=== PATIENT | female | born 1955 | race Hispanic/Latino ===

== ENCOUNTER 2017-04-19 12:06 | Emergency (ER) | payer MEDICAID ==
[2017-04-19] MEDS ORDERED: NACL 0.9% 1000 ML 1,000 ML IV ONE (14:14)
[2017-04-19 14:15] LABS: Eosinophils % (Auto) 0.8 % (0.0-4.3); Hematocrit 40.5 % (30.3-42.9); Hemoglobin 13.3 gm/dl (10.1-14.3); Mean Corpuscular HGB Conc 33 % (30-34); Mean Corpuscular Hemoglobin 29 pg (28-32); Mean Corpuscular Volume 88 fl (79-97); Platelet Count 323 K/mm3 (140-440); Red Blood Count 4.58 M/mm3 (3.65-5.03); Red Cell Distribution Width 13.4 % (13.2-15.2); White Blood Count 10.9 K/mm3 (4.5-11.0)
[2017-04-19 14:17] LABS: Alanine Aminotransferase 16 units/L (7-56); Albumin 3.4 g/dL (3.9-5); Albumin/Globulin Ratio 0.8 %; Alkaline Phosphatase 120 units/L (35-129); Anion Gap 18 mmol/L; Blood Urea Nitrogen 10 mg/dL (7-17); Calcium 8.7 mg/dL (8.4-10.2); Carbon Dioxide 21 mmol/L (22-30); Chloride 95.9 mmol/L (98-107); Glucose 356 mg/dL (65-100); Potassium 4.3 mmol/L (3.6-5.0); Sodium 131 mmol/L (137-145); Total Protein 7.6 g/dL (6.3-8.2)
--- NOTE | 2017-04-19 15:07 | Emergency Department Report ---
HPI - General Chief Complaint: Hyperglycemia Time Seen by Provider: 04/19/17 13:10 - HPI HPI: 61-year-old female presents to the emergency department with a complaint of elevated blood sugar and uncontrolled diabetes. Patient admits to some increased urination and thirst. She denies any fever, chest pain, cough, abdominal pain, nausea, vomiting. She checked her blood sugar this morning and found it to be close to 500. This was confirmed when EMS picked her up and it was found to be 583. She is insulin-dependent and says that she is on 40 units of some type of insulin but is a poor historian about her medications. She has a primary care physician but cannot remember their name. 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) - Surgical History Hx Cholecystectomy: Yes Additional Surgical History: Tubaligation - Social History Smoking Status: Heavy Tobacco Smoker Substance Use Type: None - Medications Home Medications: Home Medications Medication Instructions Recorded Confirmed Last Taken Type Docusate Sodium [Colace] 100 mg PO BID PRN #60 capsule 01/03/16 Unknown Rx Gentamicin 0.3% Ophth Soln 1 drops OP Q4H #1 bottle 01/03/16 Unknown Rx Lactulose [Cephulac] 20 gm PO QDAY #90 ml 01/03/16 Unknown Rx ED Review of Systems ROS: Stated complaint: ELEVATED B/P Other details as noted in HPI Comment: All other systems reviewed and negative Constitutional: denies: chills, fever Eyes: denies: eye pain, eye discharge, vision change ENT: denies: ear pain, throat pain Respiratory: denies: cough, shortness of breath, wheezing Cardiovascular: denies: chest pain, palpitations Endocrine: increased thirst, increased urine Gastrointestinal: denies: abdominal pain, nausea, diarrhea Genitourinary: frequency. denies: dysuria, discharge Musculoskeletal: denies: back pain, joint swelling, arthralgia Skin: denies: rash, lesions Neurological: denies: headache, weakness, paresthesias Physical Exam - Physical Exam Vital Signs: Vital Signs 04/19/17 12:35 Temperature 98.5 F Pulse Rate 82 Respiratory 16 Rate Blood Pressure 103/60 Blood Pressure 103/60 [Right] O2 Sat by Pulse 92 Oximetry Physical Exam: GENERAL: The patient is well-developed well-nourished. HEENT: Normocephalic. Atraumatic. Extraocular motions are intact. Patient has moist mucous membranes. Pupils equal reactive to light bilaterally. NECK: Supple. Trachea is midline. CHEST/LUNGS: Clear to auscultation. There is no respiratory distress noted. HEART/CARDIOVASCULAR: Regular. There is no tachycardia. There is no gallop rub or murmur. ABDOMEN: Abdomen is soft, nontender. Patient has normal bowel sounds. There is no abdominal distention. SKIN: Skin is warm and dry. NEURO: The patient is awake, alert. The patient is cooperative. The patient has no focal neurologic deficits. The patient has normal speech. Normal gait. MUSCULOSKELETAL: There is no tenderness or deformity. There is no limitation range of motion. There is no evidence of acute injury. ED Course Vital Signs 04/19/17 12:35 Temperature 98.5 F Pulse Rate 82 Respiratory 16 Rate Blood Pressure 103/60 Blood Pressure 103/60 [Right] O2 Sat by Pulse 92 Oximetry ED Medical Decision Making - Lab Data Result diagrams: 04/19/17 13:43 04/19/17 13:43 - EKG Data -: EKG Interpreted by Tn EKG shows normal: sinus rhythm, axis, intervals, QRS complexes, ST-T waves Rate: normal - EKG Data When compared to previous EKG there are: previous EKG unavailable Interpretation: normal EKG - Medical Decision Making 61-year-old female presents to the emergency department with hyperglycemia. Blood sugar was found to be around 580 by EMS. She did not receive any treatment or medication and her serum blood sugar here was about 380. She was given a liter of IV fluid and 8 units of IV insulin. One hour later the blood sugar was rechecked and her Accu-Chek was closer to 180. Pulse of her labs were unremarkable as there was no electrolyte abnormalities, signs of infection , renal insufficiency. EKG was normal without ST elevation MT, ischemia or dysrhythmia. The patient lives at a assisted secondary to her bipolar disorder and psychiatric disease and it appears as if they manage her medication. Vital signs stable throughout her ED course. The patient appears safe for discharge home at this time. She was seen ambulatory in the emergency department and appeared stable while doing so. There is no venous acidosis, and there is no elevated anion gap. Therefore patient is low suspicion for DKA or HHNK. She'll be encouraged to follow-up with her primary care physician and will return to the ER with any worsening of her symptoms or any acute distress. - Differential Diagnosis DKA, HHNK, hyperglycemia, dysrhythmia Critical Care Time: No Critical care attestation.: If time is entered above; I have spent that time in minutes in the direct care of this critically ill patient, excluding procedure time. ED Disposition Clinical Impression: Hyperglycemia due to type 1 diabetes mellitus Uncontrolled diabetes mellitus Qualifiers: Diabetes mellitus type: type 1 Diabetes mellitus complication status: with hyperglycemia Qualified Code(s): E10.65 - Type 1 diabetes mellitus with hyperglycemia Disposition: DC- TO HOME OR SELFCARE Is pt being admited?: No Condition: Stable Instructions: Diabetic Hyperglycemia (ED) Additional Instructions: Please continue with your normal diabetes insulin regimen. Try to stay away from foods that are high in sugar, carbohydrates and starches to help with your blood sugar. Keep a blood sugar log. Return to the emergency department with any worsening of your symptoms or any acute distress. Referrals: PRIMARY CAREMD [Primary Care Provider] - [facility] Time of Disposition: 15:52
[2017-04-19 15:53] VITALS: BP 105/58
== END 2017-04-19 16:32 | disposition home or self-care (01) ==
LOC: ED 12:06
DX: E10.65 Type 1 diabetes mellitus with hyperglycemia (principal); F31.9 Bipolar disorder, unspecified; F17.200 Nicotine dependence, unspecified, uncomplicated
CPT/HCPCS: 36415; 80053; 82805; 82962; 85025; 93005; 93010; 96361; 96374; 99284; J7030; J1815

== ENCOUNTER 2017-11-15 16:50 | Emergency (ER) | payer MEDICAID ==
[2017-11-15 18:44] LABS: Bacteria,Urine 1+ /HPF (Negative); Bilirubin,Urine NEG (Negative); Blood,Urine NEG (Negative); Color,Urine Yellow (Yellow); Mucus,Urine 3+ /HPF; Nitrite,Urine NEG (Negative)
[2017-11-15 18:47] LABS: Basophils # (Auto) 0.1 K/mm3 (0.0-0.1); Basophils % (Auto) 0.8 % (0.0-1.8); Eosinophils # (Auto) 0.2 K/mm3 (0.0-0.4); Eosinophils % (Auto) 2.1 % (0.0-4.3); Hematocrit 38.4 % (30.3-42.9); Hemoglobin 12.8 gm/dl (10.1-14.3); Lymphocytes % (Auto) 35.8 % (13.4-35.0); Mean Corpuscular HGB Conc 33 % (30-34); Mean Corpuscular Hemoglobin 30 pg (28-32); Mean Corpuscular Volume 91 fl (79-97); Monocytes # (Auto) 0.7 K/mm3 (0.0-0.8); Monocytes % (Auto) 6.5 % (0.0-7.3); Platelet Count 335 K/mm3 (140-440); Red Blood Count 4.23 M/mm3 (3.65-5.03); Red Cell Distribution Width 13.4 % (13.2-15.2)
[2017-11-15 19:01] LABS: Amphetamine Screen,Urine PRESUMPTIVE NEGATIVE; Benzodiazepines Screen,Urine PRESUMPTIVE NEGATIVE; Cannabinoid Screen,Urine PRESUMPTIVE NEGATIVE; Cocaine Screen,Urine PRESUMPTIVE NEGATIVE; Methadone Screen,Urine PRESUMPTIVE NEGATIVE; Opiate Screen,Urine PRESUMPTIVE NEGATIVE
[2017-11-15 19:07] LABS: BUN/Creatinine Ratio 24; Blood Urea Nitrogen 12 mg/dL (7-17); Calcium 8.7 mg/dL (8.4-10.2); Hemolysis Index 1
[2017-11-15] MEDS ORDERED: NACL 0.9% 500 ML 500 ML IV ONE (20:09)
[2017-11-15] MEDS ORDERED: ROCEPHIN/NS 1 GM/50 ML 1 GM/50 ML BAG IV ONE (20:09)
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
[2017-11-15] MEDS ORDERED: cefTRIAXone 1 GM in NACL 0.9% 20 ML IV ONE (21:00)
[2017-11-16] MEDS: MACROBID PO SCH ×2 (11:13→22:25)
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
[2017-11-16] MEDS: RisperDAL PO SCH (22:25)
[2017-11-17] MEDS: MACROBID PO SCH ×2 (12:02→22:22)
--- NOTE | 2017-11-17 15:14 | Progress Note ---
Subjective - Reason for Consult Consult date: 11/17/17 Reason for consult: Psychiatry Follow-up - Chief Complaint Chief complaint: "When will I leave" This is a 61-year-old female who presents to the emergency department by EMS from a psychiatric adult daycare program for her bipolar disorder with a complaint of some visual hallucinations and homicidal ideations. Today the patient is calm and cooperative during the assessment. She wanted to know when she will be transferred. The process was explained to the patient. She stated, "okay." She denies SI/HI's and AVH's. She denies any side effects of her medication. Mental Status Exam - Vital signs Last Vital Signs Temp 98.7 F 11/17/17 10:00 Pulse 72 11/17/17 10:00 Resp 18 11/17/17 10:00 BP 105/68 11/17/17 10:00 Pulse Ox 100 11/17/17 10:00 - Exam Narrative exam: MSE: Appearance: calm, cooperative Behavior: regular eye contact Speech: regular rate and tone Mood: "okay" Affect: congruent to mood Thought Process: circumstantial Thought Content: denies SI/HI's and AVH's Motor Activity: ambulatory Cognition: A/O x3 Insight: variable Judgment: variable Assessment and Plan Impression: Hx of Bipolar DO/Unspecified Intellectual Disability. Today the patient is calm and cooperative during the assessment. Recommendation/Plan: Continue 1013 with placement to inpatient psy services. Continue Risperdal 1 mg PO HS for mood. Discussed possible metabolic side effects of Risperdal with patient.
[2017-11-17] MEDS: RisperDAL PO SCH (22:23)
[2017-11-18] MEDS: MACROBID PO SCH ×2 (10:14→22:33)
--- NOTE | 2017-11-18 18:25 | Progress Note ---
Subjective - Reason for Consult Consult date: 11/18/17 Reason for consult: psychiatric follow-up Requesting physician: FELTON MCCOY - Chief Complaint Chief complaint: "I am fine". 61-year-old female was seen today in the emergency room for a follow- up. Patient has a history of bipolar disorder, and was sent to the ER complains of visual hallucinations or homicidal ideations. Today the patient was seen actively responding to internal stimuli and talking to herself, while she was alone in her room. The staff also did report that the patient was responding to internal stimuli. She was cooperative during the assessment, but at times was speaking in [place] language. She denies any current suicidal or homicidal ideations and also was minimizing or auditory hallucinations. Denies any side effects or current medications. Mental Status Exam - Vital signs Last Vital Signs Temp 98.2 F 11/18/17 07:34 Pulse 95 H 11/18/17 07:34 Resp 16 11/18/17 07:34 BP 140/88 11/18/17 07:34 Pulse Ox 97 11/18/17 07:34 - Exam Orientation: time, place Affect: anxious Mood: anxious Thought content: paranoia Thought Process: Loose Associations, Disorganized Perceptions: auditory, hallucinations Speech: slurring Concentration: distractible Motor activity: normal Level of consciousness: alert Memory: Recent Impaired Appetite: increased Interaction: irritable, guarded Assessment and Plan Assessment and plan: Bipolar disorder with psychosis Recommendation: Continue patient on 1013 and facilitate psychiatric hospital placement. Continue risperidone 1 mg at bedtime for her mood and psychotic symptoms. Will continue to follow-up.
[2017-11-18] MEDS: RisperDAL PO SCH (22:33)
[2017-11-18] MEDS ORDERED: NACL 0.9% 1000 ML 1,000 ML IV ONE (22:48)
[2017-11-19 00:17] LABS: Blood Urea Nitrogen TNR mg/dL (7-17)
[2017-11-19 00:18] LABS: BUN/Creatinine Ratio TNR; Calcium TNR mg/dL (8.4-10.2); Hemolysis Index TNR
[2017-11-19 01:03] LABS: BUN/Creatinine Ratio 26; Blood Urea Nitrogen 13 mg/dL (7-17); Calcium 8.5 mg/dL (8.4-10.2); Hemolysis Index 58
[2017-11-19] MEDS: MACROBID PO SCH ×2 (10:06→22:37)
[2017-11-19] MEDS: RisperDAL PO SCH (22:37)
[2017-11-20] MEDS: MACROBID PO SCH ×2 (10:45→22:27)
--- NOTE | 2017-11-20 11:02 | Progress Note ---
Subjective - Reason for Consult Consult date: 11/20/17 Reason for consult: Psychiatry Follow-up - Chief Complaint Chief complaint: "What do you want" 61-year-old female was seen today in the emergency room for a follow- up. Patient has a history of bipolar disorder, and was sent to the ER complains of visual hallucinations or homicidal ideations. Today the patient is calm during the assessment. She has a tangential thought process and had to be redirected several time to keep her on topic. The patient could possibly be responding to internal stimuli because she was observed talking to herself once I left her room. She denies SI/HI's and any side effects of her medication. Mental Status Exam - Vital signs Last Vital Signs Temp 98 F 11/20/17 05:04 Pulse 70 11/20/17 05:04 Resp 18 11/20/17 05:04 BP 132/74 11/20/17 05:04 Pulse Ox 99 11/20/17 05:04 - Exam Narrative exam: MSE: Appearance: calm Behavior: regular eye contact Speech: regular rate and tone Mood: "okay" Affect: congruent to mood Thought Process: tangential Thought Content: denies SI/HI's and AVH's, possibly respond to internal stimuli Motor Activity: ambulatory Cognition: A/O x3 Insight: variable Judgment: variable Assessment and Plan Impression: Hx of Bipolar DO/Unspecified Intellectual Disability. Today the patient is calm during the assessment. Patient possibly responding to internal stimuli. Recommendation/Plan: Continue 1013 with placement to inpatient psy services. Modify Risperdal to 1 mg PO BID for mood. Discussed possible metabolic side effects of Risperdal with patient.
[2017-11-20] MEDS: RisperDAL PO SCH ×2 (11:45→22:27)
[2017-11-21] MEDS: RisperDAL PO SCH (10:30)
[2017-11-21] MEDS: MACROBID PO SCH (10:30)
[2017-11-21 11:01] VITALS: BP 138/70
--- NOTE | 2017-11-21 11:15 | Progress Note ---
Subjective - Reason for Consult Consult date: 11/21/17 Reason for consult: Psychiatry Follow-up - Chief Complaint Chief complaint: "Everyone is going to hell" 61-year-old female was seen today in the emergency room for a follow- up. Patient has a history of bipolar disorder, and was sent to the ER complains of visual hallucinations or homicidal ideations. Today the patient is calm during the assessment. She is grandiose with her thoughts and stated that everyone is going to hell. She stated her detention staff are the people who will be going to hell. She did not answer many of the questions asked of her. No gestures of SI/HI's and AVH's. No indication of any side effects of her medication. Mental Status Exam - Vital signs Last Vital Signs Temp 98.3 F 11/21/17 11:00 Pulse 84 11/21/17 11:00 Resp 16 11/21/17 11:00 BP 138/70 11/21/17 11:00 Pulse Ox 97 11/21/17 11:00 - Exam Narrative exam: MSE: Appearance: calm Behavior: regular eye contact Speech: regular rate and tone Mood: "okay" Affect: congruent to mood Thought Process: tangential Thought Content: no gestures of SI/HI's and AVH's, grandiose Motor Activity: ambulatory Cognition: A/O x3 Insight: variable Judgment: variable Assessment and Plan Impression: Hx of Bipolar DO/Unspecified Intellectual Disability. Today the patient is calm during the assessment. Recommendation/Plan: Continue 1013 with placement to [facility] today. Continue Risperdal to 1 mg PO BID for mood. Discussed possible metabolic side effects of Risperdal with patient. Will start Depakote once her LTF's, lipase, and amylase results.
[2017-11-21 11:32] LABS: BUN/Creatinine Ratio 30; Blood Urea Nitrogen 12 mg/dL (7-17); Calcium 8.9 mg/dL (8.4-10.2); Hemolysis Index 97
[2017-11-21 11:51] LABS: Alanine Aminotransferase 14 units/L (7-56); Lipase 12 units/L (13-60)
[2017-11-21] MEDS ORDERED: NACL 0.9% 1000 ML 1,000 ML IV ONE (12:05)
== END 2017-11-21 13:45 | disposition home or self-care (01) ==
LOC: EEVIPCON 16:50 → ED 16:50
DX: F31.9 Bipolar disorder, unspecified (principal); E11.65 Type 2 diabetes mellitus with hyperglycemia; N30.00 Acute cystitis without hematuria; R44.0 Auditory hallucinations; Z90.49 Acquired absence of other specified parts of digestive tract; Z98.51 Tubal ligation status; Z87.891 Personal history of nicotine dependence; Z88.8 Allergy status to other drugs, medicaments and biological substances
CPT/HCPCS: 36415; 80048; 80307; 81001; 82150; 82962; 83690; 84075; 84450; 84460; 85025; 96361; 96374; 96375; 96376; 99285; G0480; J0696; J7030; J7040; 80320; J1815